=== PATIENT | male | born 1990 | race African-American/Black ===

== ENCOUNTER 2020-02-16 23:06 | Emergency (ER) | payer SELFPAY ==
--- NOTE | 2020-02-16 23:44 | RAD ---
EXAM: Chest PA and lateral: HISTORY: Chest pain. COMPARISON: 07/09/2019 FINDINGS: Heart: Normal cardiac silhouette Aorta: Unremarkable Pulmonary vessels: Normal Costophrenic angles: Costophrenic angles are clear. Lungs: No consolidation or masses. Pneumothorax: No pneumothorax Osseous structures: No osseous abnormalities IMPRESSION: No acute cardiopulmonary process.
== END 2020-02-17 01:08 | disposition home or self-care (01) ==
LOC: ERS 23:06
DX: R06.00 Dyspnea, unspecified (principal); R42 Dizziness and giddiness; F17.210 Nicotine dependence, cigarettes, uncomplicated
CPT/HCPCS: 71046; 93005

== ENCOUNTER 2020-04-01 07:46 | Emergency (ER) | payer SELFPAY ==
[2020-04-01] MEDS ORDERED: Lorazepam 2 MG/ML VIAL ONE (08:07)
[2020-04-01 08:26] LABS: #Basophils 0.1 thou/uL (0.0-0.2); #Eosinphils 0.5 thou/uL (0.0-0.7); #Lymphocytes 2.2 thou/uL (1.20-3.40); #Monocytes 0.3 thou/uL (0.11-0.59); #Neutrophils 1.8 thou/uL (1.40-6.50); %Basophils 1.6 % (0.0-1.0); %Eosinophils 10.9 % (0.0-10.0); %Monocytes 6.4 % (0.0-10.0); %Neutrophils 37.2 % (42.0-75.0); Hemoglobin 15.1 g/dL (14.0-18.0); Mean Corpuscular HGB CONC 32.9 g/dL (32.0-36.0); Mean Corpuscular Hemoglobin 32.4 pg (27.0-31.0); Mean Corpuscular Volume 98.6 fL (78.0-98.0); Mean Platelet Volume 8.2 fL (7.4-10.4); Platelet Count 221 thou/uL (130-400); RBC Distribution Width 11.3 % (11.5-14.5); Red Blood Cell (RBC) Count 4.66 mill/uL (4.70-6.10); White Blood Cell (WBC) Count 4.9 thou/uL (4.8-10.8)
[2020-04-01 08:48] LABS: ALT (SGPT) 15 U/L (8-55); AST (SGOT) 23 U/L (5-34); Acetaminophen Less than 6.0 mcg/mL (10.0-30.0); Albumin 4.5 g/dL (3.5-5.0); Alcohol Less than 10 mg/dL (Less than 10); Alkaline Phosphatase 44 U/L (40-110); Anion Gap 19 mmol/L (10-20); BUN (Urea Nitrogen) 19 mg/dL (8.9-20.6); Bilirubin, Total 0.6 mg/dL (0.2-1.2); CK (CPK) 476 U/L (30-200); Calc. Creatinine Clearance 0 mL/min (70-130); Calcium 9.3 mg/dL (7.8-10.44); Carbon Dioxide 19 mmol/L (22-29); Chloride 101 mmol/L (98-107); Estimated GFR-MDRD 74; Globulin 3.2 g/dL (2.4-3.5); Glucose 245 mg/dL (70-105); Potassium 3.1 mmol/L (3.5-5.1); Protein, Total 7.7 g/dL (6.0-8.3); Salicylate Less than 8.0 mg/dL (15.0-30.0); Sodium 136 mmol/L (136-145)
[2020-04-01] MEDS ORDERED: Potassium Chloride 20 MEQ TAB ONE (10:22)
[2020-04-01 10:51] LABS: Amphetamine Not Detected (NotDetected); Barbiturates Screen Not Detected (NotDetected); Benzodiazepine Screen Not Detected (NotDetected); Cocaine Metabolite Screen Not Detected (NotDetected); Medtox Control Line Valid? VALID (VALID); Medtox Reader # READER 4; Methadone Not Detected (NotDetected); Methamphetamine Not Detected (NotDetected); Opiate Screen Not Detected (NotDetected); Oxycodone Screen Not Detected (NotDetected); Phencyclidine (PCP) Not Detected (NotDetected); THC/Cannabinoid Screen Not Detected (NotDetected); Tricyclic Screen Not Detected (NotDetected)
--- NOTE | 2020-04-03 15:50 | EKG ---
Test Reason : DRUG USE Blood Pressure : / mmHG Vent. Rate : 128 BPM Atrial Rate : 128 BPM P-R Int : 146 ms QRS Dur : 078 ms QT Int : 290 ms P-R-T Axes : 076 045 -13 degrees QTc Int : 423 ms Sinus tachycardia Possible Left atrial enlargement Left ventricular hypertrophy Possible Inferior infarct , age undetermined Abnormal ECG Confirmed by MARTIN JOINER DO ([id number]), associate entertainment editor LILLIAM WAKEFIELD ([id number]) on 04/03/2020 3:49:02 PM Referred By: Confirmed By:MARTIN JOINER DO
== END 2020-04-01 12:26 | disposition home or self-care (01) ==
LOC: ERS 07:46
DX: R00.2 Palpitations (principal); F41.9 Anxiety disorder, unspecified; E87.6 Hypokalemia; N17.9 Acute kidney failure, unspecified; F12.10 Cannabis abuse, uncomplicated; F31.9 Bipolar disorder, unspecified; F17.200 Nicotine dependence, unspecified, uncomplicated
CPT/HCPCS: 36415; 80053; 80306; 80307; 82550; 84484; 85025; 93005; 96361; 96374; J2060

== ENCOUNTER 2020-04-04 21:30 | Emergency (ER) | payer SELFPAY ==
[2020-04-04] MEDS ORDERED: Lorazepam 1 MG TAB ONE (22:43)
== END 2020-04-04 23:26 | disposition home or self-care (01) ==
LOC: ERS 21:30
DX: F41.0 Panic disorder [episodic paroxysmal anxiety] (principal); F17.210 Nicotine dependence, cigarettes, uncomplicated
CPT/HCPCS: 99283

== ENCOUNTER 2020-04-09 07:51 | Emergency (ER) | payer SELFPAY ==
--- NOTE | 2020-04-10 11:12 | EKG ---
Test Reason : Blood Pressure : / mmHG Vent. Rate : 069 BPM Atrial Rate : 069 BPM P-R Int : 154 ms QRS Dur : 090 ms QT Int : 378 ms P-R-T Axes : 063 056 030 degrees QTc Int : 405 ms Normal sinus rhythm Normal ECG Confirmed by CHRISTIANA RG MD ([id number]), fan mail editor PARVIZ GUEVARA ([id number]) on 04/10/2020 11:12:25 AM Referred By: Confirmed By:CHRISTIANA RG MD
== END 2020-04-09 09:45 | disposition home or self-care (01) ==
LOC: ERS 07:51
DX: F41.9 Anxiety disorder, unspecified (principal); F17.210 Nicotine dependence, cigarettes, uncomplicated
CPT/HCPCS: 93005

== ENCOUNTER 2020-06-13 23:44 | Emergency (ER) | payer SELFPAY ==
[2020-06-14] MEDS ORDERED: hydrOXYzine Pamoate 25 mg Capsule ONE (00:14)
[2020-06-14] MEDS ORDERED: hydrOXYzine 25 MG TAB ONE (00:19)
[2020-06-14] MEDS ORDERED: hydrOXYzine 25 MG TAB PO SCH (00:30)
== END 2020-06-14 00:24 | disposition home or self-care (01) ==
LOC: ERS 23:44
DX: F41.9 Anxiety disorder, unspecified (principal); F31.9 Bipolar disorder, unspecified; F41.0 Panic disorder [episodic paroxysmal anxiety]; Z87.891 Personal history of nicotine dependence
CPT/HCPCS: 93005; 93010; Q0177